=== PATIENT | female | born 1965 | race Caucasian/White ===

== ENCOUNTER 2019-10-26 17:07 | Emergency (ER) | payer OTHER, SELFPAY ==
[2019-10-26 17:07] VITALS: BP 136/86; PULSE 83; RESP 18; TEMP 36.8; O2SAT 98; BMI 34.1
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
[2019-10-26] MEDS: Morphine 4 MG/ML Syringe IV (18:31)
[2019-10-26] MEDS: Ondansetron 4 MG/2 ML Vial IV (18:31)
[2019-10-26 19:59] VITALS: TEMP 37.2
[2019-10-26] MEDS: HYDROcodone Bitartrate/Apap 5/325 Tablet PO (20:06)
[2019-10-26 20:08] VITALS: BP 138/82; PULSE 69; RESP 15; O2SAT 98
== END 2019-10-26 20:08 | disposition home or self-care (01) ==
PROVIDERS: Emergency Provider Emergency Medicine; Family Provider Family Medicine; PCP Family Medicine
DX: Z04.1 Encounter for examination and observation following transport accident (principal); M25.512 Pain in left shoulder; M79.602 Pain in left arm; M54.2 Cervicalgia; M54.5 Low back pain; V47.0XXA Car driver injured in collision with fixed or stationary object in nontraffic accident, initial encounter; Y93.I9 Activity, other involving external motion; Y92.410 Unspecified street and highway as the place of occurrence of the external cause; Y99.8 Other external cause status
CPT/HCPCS: 70450; 71250; 72125; 73060; 74176; 96374; 96375; 99285; A4216; J2405

== ENCOUNTER → 2021-03-31 15:44 | Outpatient (CLI) | payer OTHER, SELFPAY ==
--- NOTE | 2021-03-31 15:48 | CT_ITS ---
STUDY: CT LEFT SHOULDER REASON FOR EXAM: Female, 55 years old. PRIMARY OSTEOARTHRITIS, L SHOULDER RADIATION DOSAGE (If Supplied By Facility): CTDIvol = ( 36.89 ) mGy, DLP = ( 751.35 ) mGycm TECHNIQUE: The patient was scanned in a multi detector CT scanner. High resolution transaxial imaging was performed without the administration of intravenous contrast material. Sagittal and coronal images were reconstructed. Individualized dose optimization techniques were used for this CT. COMPARISON: None. FINDINGS: The glenohumeral joint space is mildly narrow. Mild peripheral cortical osteophyte formation is also present at the medial and lateral aspects of the humeral head. Mild to moderate subchondral cystic changes are seen in the glenoid. No visualized acute fracture. Normal glenoid rim, neck and visualized scapula. Normal humeral head, neck and tuberosities. Normal coracoid process. Normal visualized lateral clavicle. Normal acromioclavicular articulation. There is a Type II morphology (curved), with a neutral orientation. Normal visualized muscles and soft tissue structures. CT/Extremity Upper without Contra IMPRESSION: 1. Mild to moderate osteoarthritis of the glenohumeral articulation. Electronically Signed: Shant Collins MD at 23:53 EDT , Service support ,
== END ==
PROVIDERS: PCP Family Medicine; Referring Provider Specialist; Visit Provider Specialist
DX: M19.012 Primary osteoarthritis, left shoulder (principal)
CPT/HCPCS: 73200

== ENCOUNTER 2022-11-05 17:35 | Inpatient (IN) | payer OTHER, SELFPAY ==
[2022-11-05 17:21] VITALS: BP 86/57; PULSE 75; RESP 18; TEMP 36.7; O2SAT 96; O2SAT 97
[2022-11-05 18:05] LABS: Bedside Glucose 96 mg/dL (74-106)
--- NOTE | 2022-11-05 19:19 | NURSING ---
Addendum entered by Julissa Boyd 11/05/22 19:32: Jose to call back when bed available. Original Note: report called to jose in ER
--- NOTE | 2022-11-05 19:25 | NURSING ---
Patient very confused, when asked to state her name told RN her mom's name. at bedside helping answer questions. Per him the MD at [facility] said patient was much better this morning, more oriented, but states she doesn't seem any better to him. Vitals stable other than low BP. Updated Dr Lamar who gave order to send patient to the ER. Updated and patient. Report called to ER by Julissa ALY.
--- NOTE | 2022-11-06 11:48 | PN_ITS ---
Progress Note This patient was transferred to TCU after 6 PM at night from an OSH in an unstable condition. She was hypotensive and had altered mental status. We had no updated notes from the previous hospital since 10/29/22 and she was sent immediately to the ER to be evaluated. Transport was arranged by the ED back to the hospital she originated from due to unstable condition at transfer with no supporting documentation on her condition at the time of transfer from previous hospital for the preceding 6 days. She was never seen by myself and was immedi ately sent to the ED upon arrival to [facility].
--- NOTE | 2022-11-11 11:47 | MDS.RN ---
Information for the mds was obtained from review of the clinical record.
== END 2022-11-05 19:45 | disposition short-term general hospital (02) | DRG 316 ==
PROVIDERS: Admitting Provider Family Medicine Geriatric Medicine; PCP Family Medicine; Visit Provider Internal Medicine
DX: I95.9 Hypotension, unspecified (principal); R41.82 Altered mental status, unspecified
CPT/HCPCS: 82962; 87811

== ENCOUNTER 2022-11-05 20:14 | Emergency (ER) | payer OTHER, SELFPAY ==
[2022-11-05 20:15] VITALS: BP 84/64; PULSE 87; RESP 24; TEMP 37; O2SAT 93; BMI 25.9
--- NOTE | 2022-11-05 20:42 | CT_ITS ---
EXAM: CT HEAD WITHOUT INTRAVENOUS CONTRAST CLINICAL INDICATION: confusion TECHNIQUE: Multiple axial images were obtained of the head without intravenous contrast. This CT exam was performed using one or more of the following dose reduction techniques: automated exposure control, adjustment of the mA and/or kV according to patient size, and/or use of iterative reconstruction technique. This report was created using [employer] report generation technology. COMPARISON: 10/26/2019 FINDINGS: BRAIN AND EXTRA-AXIAL SPACES: Unremarkable. No intra- or extra-axial hemorrhage. No evidence of acute infarct. No intracranial mass or mass effect. There is preservation of the olivares/white matter interface. Posterior fossa structures are unremarkable. Ventricles are appropriate for age. No hydrocephalus. Basal cisterns are patent. BONES/JOINTS: Unremarkable. No discrete lytic or blastic abnormalities. SINUSES: Unremarkable as visualized. Clear. MASTOID AIR CELLS: Unremarkable. Clear. ORBITS: Visualized globes, extraocular muscles, optic nerves and retrobulbar fat appear unremarkable. CT/Brain/Head without Contrast IMPRESSION: Negative head/brain CT without intravenous contrast. There has been no change from reference exam. Electronically Signed: Zack Ibanez MD at 21:31 EST ,
[2022-11-05 20:55] LABS: Absolute Lymphocyte Count 2.54 X10^3/uL (0.83-4.51); Absolute Neutrophil Count 25.8 X10^3/uL (2.0-7.7); Basophil# 0.11 X10^3/uL; Basophil% 0.4 % (0-1); Eosinophil# 0.08 X10^3/uL; Eosinophils% 0.3 % (0-5); Hematocrit 36.9 % (37-47); Lymphocyte # 2.54 X10^3/ul (0.83-4.51); Lymphocyte % 8.1 % (19-41); Mean Corp Hgb Conc 32.5 g/dL (32-36); Mean Corpuscular Hgb 31.9 pg (27.0-32.0); Mean Corpuscular Volume 98.1 fL (81-99); Mean Platelet Vol. 12.7 fl (6.2-12.0); Monocyte# 2.36 X10^3/uL; Monocyte% 7.5 % (0-10); NRBC Flagged by Analyzer 0 % (0-5); Neutrophil # 25.78 X10^3/uL (2.7-7.7); Neutrophil % 82.2 % (47-70); POSITIVE COUNT YES; POSITIVE DIFFERENTIAL YES; Platelet Count 397 K/mm3 (150-450); RBC Distribution Width CV 15.9 % (11.6-14.6); RBC Distribution Width SD 57.6 fl (35.1-43.9); Red Blood Count 3.76 M/mm3 (4.2-5.4)
[2022-11-05 20:59] LABS: Differential Indicated SCAN CRITERIA MET; White Blood Count 31.4 K/mm3 (4.4-11.0)
[2022-11-05] MEDS: 0.9% Normal Saline 1,000 ML 1000 ML IV (21:04)
--- NOTE | 2022-11-05 21:05 | ED.RN ---
Unable to scan medications due to computer malfunction. All medications verified with Ce [facility].
[2022-11-05 21:07] LABS: ALB/GLOB Ratio 0.5 RATIO (0.9-2.4); AST(SGOT) 89 U/L (15-37); Alanine Aminotransfer ALT/SGPT 32 U/L (13-56); Albumin, Serum 2.1 g/dL (3.2-5.0); Alkaline Phosphatase 263 U/L (45-117); Anion Gap 6 (5-15); BUN 23 mg/dL (7-18); BUN/Creat Ratio 12.8 RATIO (10-20); Calcium,Total 8.5 mg/dL (8.5-10.1); Chloride 106 mmol/L (98-107); Creatinine, Serum 1.79 mg/dL (0.55-1.02); EST Glomerular Filtration Rate 31 mL/min (>60); Est Glom Filt Rate - Afr Amer 38 mL/min (>60); Estimated Creatinine Clearance 32.33 ml/min; Globulin 4.6 g/dL (2.2-4.2); Glucose 85 mg/dL (74-106); Protein, Total 6.7 g/dL (6.4-8.2); Sodium Level 134 mmol/L (136-145)
[2022-11-05 21:08] LABS: Lactic Acid 1.5 mmol/L (0.4-1.9)
--- NOTE | 2022-11-05 21:10 | RAD_ITS ---
EXAM: XR CHEST, 1 VIEW CLINICAL INDICATION: cough TECHNIQUE: Frontal view of the chest. This report was created using [employer] report generation technology. COMPARISON: None. FINDINGS: LUNGS AND PLEURAL SPACES: Unremarkable. No consolidation or edema. No pneumothorax. No effusion. HEART: Unremarkable. Cardiac silhouette not enlarged. MEDIASTINUM: Central airways and mediastinal contour are unremarkable. BONES/JOINTS: There is a left shoulder prosthesis. SOFT TISSUES: Unremarkable. RAD/Chest 1 View (Portable) IMPRESSION: No acute findings in the chest. Electronically Signed: Zack Ibanez MD at 21:33 EST ,
[2022-11-05 21:26] LABS: Differential Comment SCANNED
[2022-11-05 21:50] LABS: Bacteria 0 SEEN /hpf (None Seen); Mucous, Urine 0 SEEN /hpf (<or=2+)
[2022-11-05 21:52] VITALS: BP 88/67; PULSE 79; RESP 30; TEMP 36; O2SAT 97
--- NOTE | 2022-11-05 22:04 | CT_ITS ---
EXAM: CT ABDOMEN AND PELVIS WITHOUT INTRAVENOUS CONTRAST CLINICAL INDICATION: pain TECHNIQUE: Helically acquired images were obtained of the abdomen and pelvis without intravenous contrast. This CT exam was performed using one or more of the following dose reduction techniques: automated exposure control, adjustment of the mA and/or kV according to patient size, and/or use of iterative reconstruction technique. This report was created using [employer] report generation technology. COMPARISON: 10/26/2019 FINDINGS: LOWER THORAX: Unremarkable. Lung bases are clear. No cardiomegaly. No significant pericardial effusion. ABDOMEN: LIVER: The liver is diffusely decreased in attenuation compatible with fatty infiltration. GALLBLADDER AND BILE DUCTS: There are surgical clips from a cholecystectomy. No intra- or extrahepatic biliary ductal dilation. PANCREAS: Unremarkable. No focal cystic mass. SPLEEN: Unremarkable. Normal size without focal cystic or solid mass. ADRENALS: Unremarkable. No nodules. KIDNEYS AND URETERS: Unremarkable. Normal renal size and position. No hydronephrosis. STOMACH AND BOWEL: Unremarkable. No stomach or bowel distention. No focal inflammatory change. PELVIS: APPENDIX: No evidence of acute appendicitis. BLADDER: Unremarkable. REPRODUCTIVE: Patient status post hysterectomy. ABDOMEN and PELVIS: INTRAPERITONEAL SPACE: Unremarkable. No ascites or other fluid collection. No free air. BONES/JOINTS: Unremarkable. No suspicious lytic or blastic abnormality. SOFT TISSUES: Unremarkable. No discrete abdominal or pelvic wall hernia. VASCULATURE: Unremarkable. Abdominal aorta is non-dilated. LYMPH NODES: Unremarkable. No enlarged lymph nodes. CT/Abdomen/Pelvis without Cont IMPRESSION: No acute findings in the abdomen or pelvis. Electronically Signed: Zack Ibanez MD at 22:55 EST ,
--- NOTE | 2022-11-05 22:10 | ED.RN ---
Antibiotics verified with Hillary ALY due to computer malfunction.
[2022-11-05 22:14] VITALS: BP 97/67; PULSE 80; RESP 32; O2SAT 94
[2022-11-05 22:35] LABS: Color, Urine Yellow (Yellow); Glucose, Dipstick Normal (Normal); Ketone-Dipstick 15 mg/dl (Negative); Leukocyte Esterase-Dipstick 100 /ul (Negative); Nitrite-Dipstick Negative (Negative); Occult Blood-Urine 10 /ul (Negative); Protein-Dipstick 30 mg/dl (Negative); Specific Gravity, Urine 1.015 (1.002-1.030); Urine Clarity Sl. Cloudy (Clear); Urine Urobilinogen 1 mg/dl (Normal)
[2022-11-05 22:37] LABS: Urine Bilirubin Dipstick 3 mg/dL (Negative)
[2022-11-05 22:43] LABS: Amorphous Sediment 1+ URATE; Red Blood Cells-Urine 0-5 SEEN /hpf (0-5); Squamous Epithelial Cells - UA 0-5 SEEN /hpf (5-10); White Blood Cells 5-10 SEEN /hpf (0-5)
--- NOTE | 2022-11-05 23:53 | ED.RN ---
Addendum entered by Marsha Anguiano 11/06/22 00:01: New attempt for IV start before starting another bag of fluids so pt can obtain vancomycin. Original Note: This RN attempted IV start x2 for second IV. Jazmin ALY attempted x2 as well. Dr. Vieira notified fo difficult IV start.
--- NOTE | 2022-11-05 23:56 | EDS_ITS ---
HPI History of Present Illness Chief Complaint: Hypotension Informant: patient and SNF Narrative Narrative: Some history is obtained through patient. I also read some of the chart from her hospital she was discharged from this morning. Although the charting on t hat stopped on about the . We also discussed with TCU staff. I later discussed the case with the primary physician that had taken care of her in the hospital. This patient was evidently in the hospital for about 9 or 10 days. She had colitis and confusion. She was treated with antibiotics. Her ammonia had been elevated but it also come down before discharge. She also has a history of but drinking 10 shots a day and its thought that she likely had some component of a Korsakoff's encephalopathy because her confusion never really cleared. She also did have a high white count at discharge today. It had been a little over 20,000. Infectious disease with had just seen her. All her cultures were negative. We found out that she had a repeat CAT scan. They felt her white count may have been a leukemoid reaction and there is no indication of acute infectious process. However, the patient got down to TCU today. Her blood pressure was a bit low and she was confused. For this reason they sent her down for evaluation. Patient really cannot tell me any reason she was in [facility]. I was shocked when she was able to tell me the year the month and that Yon Elizabeth was the president. But minutes before she could not answer any of these questions with the nursing staff. She tells me she was in [facility] for about 40 minutes when in fact she was there for about 10 days. I cannot get any data on her past history. There is no useful review of systems from her. She does state that she does not feel well. She admits to coughing but denies being short of breath. She also admits to pain in the lower abdomen but states that that has been there 3 years. However, she cannot tell me that it was just evaluated in the hospital. [facility] Medical History Esophageal dilatation Esophageal dysphagia Sepsis Home Medications lactulose 10 gram/15 mL oral syrup 30 g PO TID liver 11/05/22 [History Last Taken Unknown] metformin 500 mg tablet 1,000 mg PO DAILY@1700 diabetes 11/05/22 [History Last Taken Unknown] paroxetine HCl 40 mg tablet 40 mg PO DAILY Mood 11/05/22 [History Last Taken Unknown] propranolol 120 mg capsule,24 hr,extended release 120 mg PO DAILY BP 11/05/22 [History Last Taken Unknown] rifaximin 550 mg tablet 550 mg PO TID Check with primary doctor 11/05/22 [History Last Taken Unknown] sodium bicarbonate 650 mg tablet 1,300 mg PO TID salt 11/05/22 [History Last T aken Unknown] thiamine HCl (vitamin B1) 100 mg tablet 100 mg PO DAILY supplement 11/05/22 [History Last Taken Unknown] Allergy/AdvReac Type Severity Reaction Status Date / Time Penicillins Allergy Hives Verified 10/26/19 17:10 Surgical History History of hysterectomy History of knee surgery Hx of cholecystectomy Joint replaced Social History Smoking Status: Current some day smoker tobacco type: cigarettes ROS ROS ED ROS Narrative I cannot get any useful review of systems that is consistent from this patient. Her waxing and waning confusion and inability to state her recent illnesses and times makes review of systems of very little value. Respiratory/Chest Respiratory/Chest: Reports cough Gastrointestinal Gastrointestinal: Reports abdominal pain EXAM Physical Exam Const Vital Signs: 11/05/22 20:15 11/05/22 21:52 11/05/22 22:14 Temperature 98.6 F 96.8 F L Temperature Source Temporal Axillary Pulse Rate 87 79 80 Respiratory Rate 24 H 30 H 32 H Blood Pressure 84/64 L 88/67 L 97/67 Blood Pressure Mean 70 74 77 Pulse Ox 93 97 94 Oxygen Delivery Method Room Air Room Air Room Air 11/06/22 00:00 Temperature Temperature Source Pulse Rate 82 Respiratory Rate 28 H Blood Pressure 94/52 L Blood Pressure Mean 66 Pulse Ox 97 Oxygen Delivery Method Room Air Positive well nourished and well developed General Appearance ED: well developed and NAD; Negative for cyanotic or diaphoretic HEENT Reports dry mucous membranes Mouth ED: Yes dry mucous membranes Mouth: dry mucous membranes Eyes General Eye ED: Negative for scleral icterus Neck no JVD Chest Wall inspection of chest normal Resp normal respiratory effort Resp Narrative: Respiratory effort seems normal. She does have an occasional harsh cough but no sputum production. I hear no wheezing. I hear no rales. No rhonchi. Cardio regular rate and regular rhythm GI normal to inspection, nondistended, normoactive bowel sounds and non-tender GI Narrative: Despite saying her abdomen hurts down the right lower quadrant, I am not getting any tenderness on exam. Her bowel sounds seem normal. Back/Spine no CVA tenderness Extremity normal to inspection Neuro Neuro Narrative: Patient's orientation waxes and waning very quickly. As in the history of present illness I was rather shocked when she could tell me that it was October 2022 and oYn Elizabeth was the president. She told me that those people sent her to the emergency department so she knew she was here. But then she could not tell me any of her past history or details at all about her recent admission. I do not get any focal or lateralizing deficit Psych Psych Narrative: See above. Skin no rashes or lesions noted General Skin Exam: Negative for jaundice MDM MDM MDM Narrative Medical decision making narrative: Patient CBC shows a very high white count at 31,400. No anemia. Platelets are normal. Electrolytes show acute kidney injury with a creatinine of 1.79. LFTs show elevated bilirubin at 2.0 and mild elevation of the alk phos at 263. I do not have recent results on the paperwork that I reviewed. Her ammonia was high normal at 30. Lactate was normal despite somewhat lower blood pressure. Urine was slightly cloudy but only 5-10 white cells. With her borderline blood pressure, high white count and urine results we did treat with antibiotics presumptively. I added a CAT scan of the abdomen that showed no acute process. Chest x-ray and CT of her head also showed no acute process. Patient blood pressure has been running about 95/65 with a mean of about 75 while here her whole time here. She is only gotten 500 cc of fluid because of the antibiotics running in. I discussed case with our hospitalist but he felt since all this patient's history as in another hospital when she was just discharged there this morning it would be appropriate to send her back. I agree that I think that would be best for continuity of care. I did discuss the case with Dr. Salazar who is the physician who cared for her in the hospital. She will take her back. We are awaiting a bed at this time. Lab Data Attestation: I reviewed the patient's lab results. Labs: Laboratory Results - last 24 hr 11/05/22 11/05/22 11/05/22 20:20 20:20 20:20 WBC 31.4 H* RBC 3.76 L Hgb 12.0 Hct 36.9 L MCV 98.1 MCH 31.9 MCHC 32.5 RDW Std Deviation 57.6 H RDW Coeff of April 15.9 H Plt Count 397 MPV 12.7 H Immature Gran % (Auto) 1.500 H Neut % (Auto) 82.2 H Lymph % (Auto) 8.1 L [place] % (Auto) 7.5 Eos % (Auto) 0.3 Baso % (Auto) 0.4 Absolute Neuts (auto) 25.8 H Absolute Lymphs (auto) 2.54 Nucleated RBC % 0 Differential Comment SCANNED Diff Path Review May foll Sodium 134 L Potassium 5.0 Chloride 106 Carbon Dioxide 22.0 Anion Gap 6 BUN 23 H Creatinine 1.79 H Estim Creat Clear Calc 32.33 Est GFR (MDRD) Af Amer 38 L Est GFR (MDRD) Non-Af 31 L BUN/Creatinine Ratio 12.8 Glucose 85 Lactic Acid Calcium 8.5 Total Bilirubin 2.00 H AST 89 H ALT 32 Alkaline Phosphatase 263 H Ammonia 30.0 Total Protein 6.7 Albumin 2.1 L Globulin 4.6 H Albumin/Globulin Ratio 0.5 L Urine Color Urine Clarity Urine pH Ur Specific [place] Urine Protein Urine Glucose (UA) Urine Ketones Urine Occult Blood Urine Nitrite Urine Bilirubin Urine Urobilinogen Ur Leukocyte Esterase Urine RBC Urine WBC Ur Squamous Epith Cells Amorphous Sediment Urine Bacteria Urine Mucus 11/05/22 11/05/22 20:20 21:40 WBC RBC Hgb Hct MCV MCH MCHC RDW Std Deviation RDW Coeff of April Plt Count MPV Immature Gran % (Auto) Neut % (Auto) Lymph % (Auto) [place] % (Auto) Eos % (Auto) Baso % (Auto) Absolute Neuts (auto) Absolute Lymphs (auto) Nucleated RBC % Differential Comment Diff Path Review Sodium Potassium Chloride Carbon Dioxide Anion Gap BUN Creatinine Estim Creat Clear Calc Est GFR (MDRD) Af Amer Est GFR (MDRD) Non-Af BUN/Creatinine Ratio Glucose Lactic Acid 1.5 Calcium Total Bilirubin AST ALT Alkaline Phosphatase Ammonia Total Protein Albumin Globulin Albumin/Globulin Ratio Urine Color Yellow Urine Clarity Sl. Cloudy Urine pH 6.0 Ur Specific [place] 1.015 Urine Protein 30 H Urine Glucose (UA) Normal Urine Ketones 15 H Urine Occult Blood 10 H Urine Nitrite Negative Urine Bilirubin 3 H Urine Urobilinogen 1 H Ur Leukocyte Esterase 100 H Urine RBC 0-5 SEEN Urine WBC 5-10 SEEN Ur Squamous Epith Cells 0-5 SEEN Amorphous Sediment 1+ URATE Urine Bacteria 0 SEEN Urine Mucus 0 SEEN Radiography Diagnostic Testing: Clinical Impression(s) from Imaging Studies Brain CT 11/05/22 20:42 IMPRESSION: Negative head/brain CT without intravenous contrast. There has been no change from reference exam. Electronically Signed: Zack Ibanez MD at 21:31 EST , Chest X-Ray 11/05/22 21:10 IMPRESSION: No acute findings in the chest. Electronically Signed: Zack Ibanez MD at 21:33 EST , Abdomen/Pelvis CT 11/05/22 22:04 IMPRESSION: No acute findings in the abdomen or pelvis. Electronically Signed: Zack Ibanez MD at 22:55 EST , See above in MDM. Discharge Plan Triage Chief Complaint: Hypotension ED Provider: Alcon Vieira Dx/Rx/DC Orders Clinical Impression: Leukocytosis, Transient hypotension, Confusion, Elevated liver function tests Prescriptions: No Action metformin 500 mg Tablet 1,000 mg PO DAILY@1700 lactulose 10 gram/15 mL Syrup 30 g PO TID thiamine HCl (vitamin B1) 100 mg Tablet 100 mg PO DAILY sodium bicarbonate 650 mg Tablet 1,300 mg PO TID propranolol 120 mg Capsule,Extended Release 24 Hr 120 mg PO DAILY paroxetine HCl 40 mg Tablet 40 mg PO DAILY rifaximin 550 mg Tablet 550 mg PO TID Primary Care Provider: Roscoe Whelan Referrals: Roscoe Whelan, [Primary Care Provider] - Disposition Disposition: Acute Care Hospital
[2022-11-06] VITALS (12 sets, daily range): BP systolic 94–117; BP diastolic 52–86; PULSE 66–85; RESP 17–28; TEMP 35.8–36.3; O2SAT 95–98
[2022-11-06] MEDS: 0.9% Normal Saline 1,000 ML 999 ML IV (01:30)
--- NOTE | 2022-11-06 09:14 | ED.RN ---
[facility] ETA [id number]
--- NOTE | 2022-11-06 09:24 | ED.RN ---
attempted to call report. no answer.
[2022-11-06 14:11] LABS: Pathologist Review Reviewed
== END 2022-11-06 11:20 | disposition short-term general hospital (02) ==
PROVIDERS: Emergency Provider Emergency Medicine; PCP Family Medicine; Visit Provider Emergency Medicine
DX: R41.0 Disorientation, unspecified (principal); N17.9 Acute kidney failure, unspecified; I95.9 Hypotension, unspecified; D72.829 Elevated white blood cell count, unspecified; K52.9 Noninfective gastroenteritis and colitis, unspecified; F17.210 Nicotine dependence, cigarettes, uncomplicated; R79.89 Other specified abnormal findings of blood chemistry
CPT/HCPCS: 70450; 71045; 74176; 80053; 81001; 82140; 83605; 85025; 87040; 87086; 87428; 93005; 96361; 96365; 96366; 96367; 99285; J7030; J7040; A4216

== ENCOUNTER 2022-11-11 17:10 | Inpatient (IN) | payer OTHER, SELFPAY ==
[2022-11-11 17:27] VITALS: BP 98/69; PULSE 94; RESP 17; TEMP 35.6; O2SAT 98; BMI 26.8
[2022-11-11] MEDS: Lactulose 20 GM/30 ML UDC 30 GM PO (18:57)
[2022-11-11] MEDS: Pantoprazole Sodium 40 MG Tablet PO (18:57)
[2022-11-11] MEDS: rifAXIMin 550 MG Tablet PO (18:58)
--- NOTE | 2022-11-11 20:07 | HP.PCM_ITS ---
HPI - General General Date of Admission: 11/11/22 Date of Service: 11/11/22 Chief Complaint: Here for rehabilitation. HPI Narrative REJI REBOLLAR, is a 56 Female who presents with followin10/22/2022 Admit to [facility]. Abdominal pain, constipation, nausea. Constipation x 3 months, BM very hard doris. Decreased appetite, but able to eat, drink. Rocephin, Flagyl, consult GI, clears, right upper quadrant ultrasound for colitis. CT abdomen/pelvis showed mild colitis, ascending colon, duodenal diverticulum, hepatomegaly, fatty liver, moderate sliding hiatal hernia. 10/27/2022 CT brain negative. 10/28/2022 Confused, Ammonia level elevated. MRI brain negative IV fluids, IV thiamine for Wernicke's encephalopathy. 11/05/2022 Admitted to TCU hypotensive, confused. 11/05/2022 Transferred back to [facility] for admission. 11/09/2022 GI consulted for anemia, no EGD recommended, trend Hemoglobin, trend liver function tests. Encephalopathy etiology unknown. 11/09/2022 Too weak to walk. PPI for GERD. 11/11/2022 Admit to TCU with debility, here for rehabilitation, strengthening, prior to discharge home with . [facility] Medical History Esophageal dilatation Esophageal dysphagia Sepsis Home Medications lactulose 10 gram/15 mL oral syrup 30 g PO TID liver 11/05/22 [History Last Taken Unknown] metformin 500 mg tablet 1,000 mg PO DAILY@1700 diabetes 11/05/22 [History Last Taken Unknown] paroxetine HCl 40 mg tablet 40 mg PO DAILY Mood 11/05/22 [History Last Taken Unknown] propranolol 120 mg capsule,24 hr,extended release 120 mg PO DAILY BP 11/05/22 [History Last Taken Unknown] rifaximin 550 mg tablet 550 mg PO TID Check with primary doctor 11/05/22 [History Last Taken Unknown] sodium bicarbonate 650 mg tablet 1,300 mg PO TID salt 11/05/22 [History Last Taken Unknown] thiamine HCl (vitamin B1) 100 mg tablet 100 mg PO DAILY supplement 11/05/22 [History Last Taken Unknown] fluconazole 200 mg tablet 200 mg PO DAILY UTI 11/11/22 [History Last Taken Unknown] folic acid 1 mg tablet 1 mg PO DAILY Supplement 11/11/22 [History Last Taken Un known] pantoprazole 40 mg tablet,delayed release 40 mg PO BID GERD 11/11/22 [History Last Taken Unknown] Allergy/AdvReac Type Severity Reaction Status Date / Time Penicillins Allergy Hives Verified 10/26/19 17:10 Surgical History History of hysterectomy History of knee surgery Hx of cholecystectomy Joint replaced Social History (Updated 11/11/22 @ 20:[address] Jose Lopez MD) household members: spouse Smoking Status: Never smoker alcohol intake: current substance use type: does not use ROS Constitutional Constitutional: Denies chills, fever(s) or weight gain ENT HEENT: Denies headache(s), nasal congestion or nasal discharge Cardiovascular Cardiovascular: Denies chest pain or palpitations Respiratory/Chest Respiratory/Chest: Denies cough, excessive phlegm production or shortness of breath with exertion Gastrointestinal Gastrointestinal: Denies abdominal pain, nausea or vomiting Genitourinary Genitourinary: Denies dysuria Musculoskeletal Musculoskeletal: Denies joint pain or joint swelling Integumentary Integumentary: Denies rash or wounds Neurologic Neurologic: Denies focal weakness, numbness or tingling Psychiatric Psychiatric: Denies anxiety, auditory hallucinations, depression, homicidal ideation or suicidal ideation Vital Signs Vital Signs Vital Signs: 11/11/22 17:27 11/11/22 17:27 Temperature 96.0 F L Temperature Source Temporal Pulse Rate 94 Pulse Rhythm Regular Pulse Strength Normal (2+) Respiratory Rate 17 Respiratory Effort Normal Non-Labored Respiratory Depth Normal Respiratory Pattern Normal Blood Pressure 98/69 Blood Pressure Mean 78 Blood Pressure Source Monitor Blood Pressure Position Sitting Blood Pressure Location Right Forearm Pulse Ox 98 Oxygen Delivery Method Room Air Room Air Weight Weight: 75.296 kg Body Mass Index (BMI) 26.8 Physical Exam Const alert General Appearance: cooperative HEENT normocephalic Eyes PERRL and EOMs intact bilaterally Neck supple, no JVD and no carotid bruits Resp normal respiratory effort, normal air movement and clear to auscultation bilaterally Cardio regular rate and regular rhythm GI normal to inspection, nondistended, normoactive bowel sounds, non-tender and non-distended Extremity normal capillary refill General Extremity: Negative for edema Skin no rashes or lesions noted General Skin Exam: no breakdown Psych affect normal Appearance: appropriate Assessment & Plan Assessment/Plan (1) Debility: (2) Colitis: (3) EMERY (nonalcoholic steatohepatitis): (4) Hepatic encephalopathy: (5) Wernicke encephalopathy: (6) Anxiety: (7) GERD (gastroesophageal reflux disease): PLAN: Plan 56 year old female with below past medical history hospitalized for colitis, re solved, then encephalopathy, anemia, admitted to TCU with debility, here for rehabilitation, strengthening, prior to discharge home with . * Debility - PT/OT. * Dysphagia - ST. * Pain - Tylenol 1000mg q6h prn pain (1-10). * Bowel - Hold, on Lactulose. * Adult immunization - Administer pneumonia vaccine, covid19 vaccine, flu vaccine as appropriate. * DVT prophylaxis - Hold anemia. * Nutrition - Ensure Plus 120ml po tidcm. * Fungal infection - Fluconazole 200mg daily thru 11/21/2022. * Hepatic encephalopathy - Lactulose 30gm bid, Xifaxan 550mg bid. * Skin irritation - Calmoseptine topical bid. * GERD - Pantoprazole 40mg bid. * Depression - Paxil 40mg daily, stable chronic long term care pharmacist use, GDR not recommended. * Metabolic acidosis - Sodium Bicarb 1300mg tid.
[2022-11-11] MEDS: Sodium Bicarbonate 650 MG Tablet 1300 MG PO (20:47)
[2022-11-11] MEDS: Acetaminophen 500 MG Tablet 1000 MG PO (20:47)
[2022-11-11] MEDS: Menthol/Lanolin/Calamine/Znox 113 GM Tube 1 APPLIC TOPICAL (20:47)
[2022-11-12] MEDS: Pantoprazole Sodium 40 MG Tablet PO ×2 (04:59→17:29)
[2022-11-12] MEDS: rifAXIMin 550 MG Tablet PO ×2 (05:00→17:29)
[2022-11-12] MEDS: Fluconazole 100 MG Tablet 200 MG PO (05:00)
[2022-11-12] MEDS: Sodium Bicarbonate 650 MG Tablet 1300 MG PO ×3 (05:02→19:36)
[2022-11-12] MEDS: Paroxetine 20 MG Tablet 40 MG PO (05:02)
[2022-11-12] MEDS: Lactulose 20 GM/30 ML UDC 30 GM PO ×2 (05:03→17:26)
[2022-11-12 06:00] LABS: Absolute Lymphocyte Count 2.12 X10^3/uL (0.83-4.51); Absolute Neutrophil Count 3.7 X10^3/uL (2.0-7.7); Basophil# 0.03 X10^3/uL; Basophil% 0.5 % (0-1); Eosinophil# 0.23 X10^3/uL; Eosinophils% 3.5 % (0-5); Hematocrit 29.4 % (37-47); Hemoglobin 9.5 g/dL (12.0-15.0); Lymphocyte # 2.12 X10^3/ul (0.83-4.51); Lymphocyte % 32.7 % (19-41); Mean Corp Hgb Conc 32.3 g/dL (32-36); Mean Corpuscular Hgb 32.9 pg (27.0-32.0); Mean Corpuscular Volume 101.7 fL (81-99); Mean Platelet Vol. 12.1 fl (6.2-12.0); Monocyte# 0.33 X10^3/uL; Monocyte% 5.1 % (0-10); NRBC Flagged by Analyzer 0 % (0-5); Neutrophil # 3.71 X10^3/uL (2.7-7.7); Neutrophil % 57.1 % (47-70); Platelet Count 257 K/mm3 (150-450); RBC Distribution Width CV 15.1 % (11.6-14.6); Red Blood Count 2.89 M/mm3 (4.2-5.4); White Blood Count 6.5 K/mm3 (4.4-11.0)
[2022-11-12 06:37] LABS: Anion Gap 5 (5-15); BUN 3 mg/dL (7-18); BUN/Creat Ratio 3.7 RATIO (10-20); Calcium,Total 7.6 mg/dL (8.5-10.1); Chloride 119 mmol/L (98-107); Creatinine, Serum 0.82 mg/dL (0.55-1.02); EST Glomerular Filtration Rate 77 mL/min (>60); Est Glom Filt Rate - Afr Amer 93 mL/min (>60); Estimated Creatinine Clearance 73.42 ml/min; Glucose 78 mg/dL (74-106); Potassium 3.1 mmol/L (3.5-5.1); Sodium Level 146 mmol/L (136-145)
[2022-11-12] MEDS: Ensure Plus High Protein 120 ML LIQUID PO ×3 (07:49→17:34)
[2022-11-12] MEDS: Acetaminophen 500 MG Tablet 1000 MG PO ×3 (07:57→20:06)
--- NOTE | 2022-11-12 08:06 | RAD_ITS ---
STUDY: X-RAY - PELVIS AND RIGHT HIP REASON FOR EXAM: Female, 56 years old. Right hip pain. TECHNIQUE: 3 views of the pelvis and hip. COMPARISON: None. FINDINGS: There is a non-specific bowel gas pattern. Normal visualized soft tissue structures. Normal bilateral iliac wings, sacroiliac joints and visualized sacrum. Normal bilateral superior and inferior pubic rami. Normal pubic symphysis. Normal bilateral ischial tuberosities. Mild arthrosis of both hips. RAD/HIP, UNI W/ Pelvis 2-3 Views IMPRESSION: Mild arthrosis of both hips. No other abnormality. Electronically Signed: Clint Gaines, at 14:43 EST ,
[2022-11-12] MEDS: traMADol 50 MG Tablet PO ×2 (09:04→20:06)
[2022-11-12] MEDS: Potassium Chloride Oral Tablet 20 MEQ 40 MEQ PO (09:05)
[2022-11-12] MEDS: Potassium Chloride Oral Tablet 20 MEQ PO (09:05)
[2022-11-12] MEDS: Menthol/Lanolin/Calamine/Znox 113 GM Tube 1 APPLIC TOPICAL ×2 (11:02→19:37)
[2022-11-12] MEDS: Tuberculin,Purif.prot.deriv. 50 TU/ML Vial 0.1 ML ID (11:04)
[2022-11-12 14:43] VITALS: BP 97/65; PULSE 76; RESP 16; TEMP 36.4; O2SAT 98
--- NOTE | 2022-11-12 16:25 | NURSING ---
xray done of pelvis and rt hip d/t pain, showed mild arthrosis both hips. dr miller reviewed, no new orders.
[2022-11-13 05:00] VITALS: BP 114/76; PULSE 112
[2022-11-13] MEDS: Acetaminophen 500 MG Tablet 1000 MG PO ×3 (05:06→18:23)
[2022-11-13] MEDS: traMADol 50 MG Tablet PO ×3 (05:06→18:23)
[2022-11-13] MEDS: Fluconazole 100 MG Tablet 200 MG PO (05:07)
[2022-11-13] MEDS: Paroxetine 20 MG Tablet 40 MG PO (05:07)
[2022-11-13] MEDS: Pantoprazole Sodium 40 MG Tablet PO ×2 (05:07→17:01)
[2022-11-13] MEDS: rifAXIMin 550 MG Tablet PO ×2 (05:07→17:02)
[2022-11-13] MEDS: Sodium Bicarbonate 650 MG Tablet 1300 MG PO ×3 (05:08→21:01)
[2022-11-13] MEDS: Ensure Plus High Protein 120 ML LIQUID PO ×3 (08:24→16:59)
[2022-11-13] MEDS: Lactulose 20 GM/30 ML UDC 30 GM PO ×2 (08:26→17:00)
[2022-11-13] MEDS: Potassium Chloride Oral Tablet 20 MEQ PO (08:30)
[2022-11-13 10:00] VITALS: RESP 16; O2SAT 98
--- NOTE | 2022-11-13 13:53 | CASEMGMT ---
Social Work Met with patient to complete initial assessment. Introduced self and role. Verified/updated contacts. Discussed code status and MOLST form. Pt confirms full code. MOLST placed in Dr folder. Educated to MMO CM insurance with [employer] 11/13 and continued stay is not guaranteed with each review. Pt's goal is to return home at [facility]. SW to continue to follow for DC planning. Nathalie Romero ,MUSEUM SECURITY CHIEF VALUER
[2022-11-13] MEDS: Menthol/Lanolin/Calamine/Znox 113 GM Tube 1 APPLIC TOPICAL ×2 (14:08→21:01)
--- NOTE | 2022-11-13 14:31 | CHAPLAIN ---
Type of Pastoral Visit _x__ Initial Visit ___ Follow-up Visit ___ On-call Visit ___ General Patient Visit ___ Spiritual Assessment ___ Family Conference ___ Bereavement ___ Rapid Response ___ Code Blue ___ Other (describe below) Pastoral Care Referral From _x__ Patient ___ Family ___ Nurse ___ Physician ___ Coater ___ Foreign Language Teacher ___ Other (describe below) Sacrament/Intervention _x__ Active listening ___ Anointing ___ Church ___ Bereavement ___ Communion ___ Marilyn exploration ___ ___ Life review _x__ Prayer ___ Reconciliation ___ Sacrament of Sick _x__ Supportive presence ___ Wedding ___ Other (describe below) Pastoral Comments patient is known to this key account executive; pt gives update on her health situation and a review of current family life; pt is slower to process information and answers than is normal for her; pt is pleasant but has low affect; pt welcomes presence and prayer for support; pt does have a connection to a religion
[2022-11-13 15:19] VITALS: BP 116/78; PULSE 112; RESP 16; TEMP 35.8; O2SAT 99
--- NOTE | 2022-11-13 15:28 | NURSING ---
HR noted at 114 and regular. BP 116/78. Asymptomatic. Only reports pain in right hip. Dr. Dunlap made aware. Request to monitor and encourage fluids.
[2022-11-14] MEDS: Sodium Bicarbonate 650 MG Tablet 1300 MG PO ×3 (04:45→20:46)
[2022-11-14] MEDS: Paroxetine 20 MG Tablet 40 MG PO (04:45)
[2022-11-14] MEDS: rifAXIMin 550 MG Tablet PO ×2 (04:45→16:56)
[2022-11-14] MEDS: Lactulose 20 GM/30 ML UDC 30 GM PO ×2 (04:45→16:55)
[2022-11-14] MEDS: Pantoprazole Sodium 40 MG Tablet PO ×2 (04:45→16:56)
[2022-11-14] MEDS: Fluconazole 100 MG Tablet 200 MG PO (04:48)
[2022-11-14] MEDS: Acetaminophen 500 MG Tablet 1000 MG PO ×3 (04:51→18:06)
[2022-11-14] MEDS: traMADol 50 MG Tablet PO ×3 (04:52→18:06)
--- NOTE | 2022-11-14 07:21 | NURSING ---
Dr. Lopez notified of elevated Na+ at 146, drawn on 11/12. Pt having repeat BMP drawn this AM. No new orders. RN aware.
[2022-11-14] MEDS: Ensure Plus High Protein 120 ML LIQUID PO ×3 (08:00→16:54)
[2022-11-14] MEDS: Potassium Chloride Oral Tablet 20 MEQ PO ×2 (08:01→16:54)
[2022-11-14 08:02] LABS: Hematocrit 28.4 % (37-47); Hemoglobin 8.9 g/dL (12.0-15.0)
[2022-11-14] MEDS: Menthol/Lanolin/Calamine/Znox 113 GM Tube 1 APPLIC TOPICAL ×2 (08:03→20:46)
[2022-11-14 08:20] LABS: Anion Gap 6 (5-15); BUN 4 mg/dL (7-18); BUN/Creat Ratio 3.8 RATIO (10-20); Chloride 117 mmol/L (98-107); Creatinine, Serum 1.04 mg/dL (0.55-1.02); EST Glomerular Filtration Rate 59 mL/min (>60); Est Glom Filt Rate - Afr Amer 71 mL/min (>60); Estimated Creatinine Clearance 57.89 ml/min; Glucose 86 mg/dL (74-106); Potassium 3.4 mmol/L (3.5-5.1); Sodium Level 145 mmol/L (136-145)
[2022-11-14 14:29] VITALS: BP 123/84; PULSE 105; RESP 16; TEMP 36.2
[2022-11-15] MEDS: traMADol 50 MG Tablet PO ×3 (04:31→18:29)
[2022-11-15] MEDS: Sodium Bicarbonate 650 MG Tablet 1300 MG PO ×3 (04:31→19:50)
[2022-11-15] MEDS: Pantoprazole Sodium 40 MG Tablet PO ×2 (04:32→18:25)
[2022-11-15] MEDS: Paroxetine 20 MG Tablet 40 MG PO (04:32)
[2022-11-15] MEDS: Lactulose 20 GM/30 ML UDC 30 GM PO ×2 (04:33→18:25)
[2022-11-15] MEDS: Fluconazole 100 MG Tablet 200 MG PO (04:34)
[2022-11-15] MEDS: rifAXIMin 550 MG Tablet PO ×2 (04:35→18:25)
[2022-11-15] MEDS: Ensure Plus High Protein 120 ML LIQUID PO ×3 (08:45→18:24)
[2022-11-15] MEDS: Potassium Chloride Oral Tablet 20 MEQ PO ×2 (08:46→18:24)
[2022-11-15] MEDS: Menthol/Lanolin/Calamine/Znox 113 GM Tube 1 APPLIC TOPICAL ×2 (08:47→19:53)
[2022-11-15 10:00] VITALS: PULSE 110; RESP 16; O2SAT 97
[2022-11-15 15:23] VITALS: BP 124/80; PULSE 108; RESP 20; TEMP 36.6; O2SAT 97
[2022-11-16] MEDS: Lactulose 20 GM/30 ML UDC 30 GM PO ×2 (05:05→17:22)
[2022-11-16] MEDS: rifAXIMin 550 MG Tablet PO ×2 (05:06→17:24)
[2022-11-16] MEDS: Fluconazole 100 MG Tablet 200 MG PO (05:06)
[2022-11-16] MEDS: Paroxetine 20 MG Tablet 40 MG PO (05:06)
[2022-11-16] MEDS: Pantoprazole Sodium 40 MG Tablet PO ×2 (05:06→17:24)
[2022-11-16] MEDS: Sodium Bicarbonate 650 MG Tablet 1300 MG PO ×3 (05:06→20:04)
[2022-11-16] MEDS: traMADol 50 MG Tablet PO ×3 (05:08→17:46)
[2022-11-16] MEDS: Ensure Plus High Protein 120 ML LIQUID PO ×2 (08:08→12:33)
[2022-11-16] MEDS: Potassium Chloride Oral Tablet 20 MEQ PO ×2 (08:08→17:24)
[2022-11-16] MEDS: Menthol/Lanolin/Calamine/Znox 113 GM Tube 1 APPLIC TOPICAL ×2 (08:10→20:05)
[2022-11-16 08:38] LABS: Hematocrit 31.5 % (37-47); Hemoglobin 9.5 g/dL (12.0-15.0)
[2022-11-16 08:59] LABS: Anion Gap 4 (5-15); BUN 4 mg/dL (7-18); BUN/Creat Ratio 3.7 RATIO (10-20); Calcium,Total 8.4 mg/dL (8.5-10.1); Chloride 116 mmol/L (98-107); Creatinine, Serum 1.08 mg/dL (0.55-1.02); EST Glomerular Filtration Rate 56 mL/min (>60); Est Glom Filt Rate - Afr Amer 68 mL/min (>60); Estimated Creatinine Clearance 55.75 ml/min; Glucose 126 mg/dL (74-106); Potassium 4.1 mmol/L (3.5-5.1); Sodium Level 144 mmol/L (136-145)
--- NOTE | 2022-11-16 11:18 | NURSING ---
System Analyst Note; Activity Asset: Marcelle Flynn is independent in her choice of daily activities. She reads, works on word puzzles, watches tv, visits with her family and the salesperson surgical appliances.
[2022-11-16 13:51] VITALS: BP 119/74; PULSE 118; RESP 18; TEMP 36.4; O2SAT 96
[2022-11-16 20:00] VITALS: BP 113/85; PULSE 95; RESP 18; TEMP 36.5; O2SAT 97
[2022-11-17] MEDS: Sodium Bicarbonate 650 MG Tablet 1300 MG PO ×3 (06:59→19:43)
[2022-11-17] MEDS: Lactulose 20 GM/30 ML UDC 30 GM PO ×2 (06:59→17:42)
[2022-11-17] MEDS: Paroxetine 20 MG Tablet 40 MG PO (07:00)
[2022-11-17] MEDS: Fluconazole 100 MG Tablet 200 MG PO (07:00)
[2022-11-17] MEDS: Pantoprazole Sodium 40 MG Tablet PO ×2 (07:00→17:43)
[2022-11-17] MEDS: rifAXIMin 550 MG Tablet PO ×2 (07:01→17:43)
[2022-11-17] MEDS: traMADol 50 MG Tablet PO ×3 (07:03→19:43)
[2022-11-17] MEDS: Acetaminophen 500 MG Tablet 1000 MG PO ×2 (07:04→19:43)
[2022-11-17] MEDS: Potassium Chloride Oral Tablet 20 MEQ PO ×2 (08:43→17:43)
[2022-11-17 10:00] VITALS: PULSE 107; RESP 18; O2SAT 97
[2022-11-17] MEDS: Menthol/Lanolin/Calamine/Znox 113 GM Tube 1 APPLIC TOPICAL ×2 (10:03→19:46)
[2022-11-17 13:18] VITALS: BP 121/89; PULSE 114; RESP 16; TEMP 36.9; O2SAT 98
[2022-11-17 14:54] VITALS: PULSE 107
--- NOTE | 2022-11-17 15:39 | PCM.PN.DRR ---
TCU RX Drug Regimen Review Subjective: TCU Admission. 56 YOF hospitalized for colitis, resolved, then encephalopathy, anemia. Admitted to TCU with debility for strengthening and rehabilitation. Objective: Allergies Penicillins Allergy (Verified 10/26/19 17:10) Hives Current Medications Generic Name Dose Route Start Last Admin Trade Name Freq PRN Reason Stop Dose Admin Acetaminophen 1,000 mg 11/12/22 08:07 11/17/22 07:04 Acetaminophen 500 Mg Tablet PO 1,000 mg Q6H PRN PRN Administration Pain Score 1-5 Calamine/Phenol 1 applic 11/12/22 10:00 11/17/22 10:03 Menthol/Lanolin/Calamine/Znox 113 Gm Tube TOPICAL 1 applic 1000,2200 PADMINI Administration Protocol Fluconazole 200 mg 11/12/22 06:00 11/17/22 07:00 Fluconazole 100 Mg Tablet PO 11/21/22 06:01 200 mg DAILY PADMINI Administration Lactulose 30 gm 11/11/22 18:00 11/17/22 06:59 Lactulose 20 Gm/30 Ml Udc PO 11/21/22 18:01 30 gm BID PADMINI Administration Nutritional Formula (Lactose Free) 120 ml 11/12/22 07:45 11/17/22 11:54 Ensure Plus High Protein 120 Ml Liquid PO Not Given TIDCM PADMINI Pantoprazole Sodium 40 mg 11/11/22 18:00 11/17/22 07:00 Pantoprazole Sodium 40 Mg Tablet PO 40 mg BID PADMINI Administration Paroxetine HCl 40 mg 11/12/22 06:00 11/17/22 07:00 Paroxetine 20 Mg Tablet PO 40 mg DAILY PADMINI Administration Potassium Chloride 20 meq 11/14/22 17:00 11/17/22 08:43 Potassium Chloride Oral Tablet 20 Meq PO 20 meq BIDCM PADMINI Administration Rifaximin 550 mg 11/11/22 18:00 11/17/22 07:01 Rifaximin 550 Mg Tablet PO 550 mg BID PADMINI Administration Sodium Bicarbonate 1,300 mg 11/11/22 22:00 11/17/22 13:24 Sodium Bicarbonate 650 Mg Tablet PO 1,300 mg TID PADMINI Administration Tramadol HCl 50 mg 11/12/22 08:06 11/17/22 13:26 Tramadol 50 Mg Tablet PO 50 mg Q6H PRN PRN Administration Pain Score 6-10 Tuberculin PPD 0.1 ml 11/19/22 10:00 Tuberculin,Purif.Prot.Deriv. 50 Tu/Ml Vial ID 11/19/22 10:01 X1 ONE Problem List (Last Reviewed 11/11/22 @ 20:[address] Jose Lopez MD) GERD (gastroesophageal reflux disease) (Acute) Anxiety (Acute) Wernicke encephalopathy (Acute) Hepatic encephalopathy (Acute) EMERY (nonalcoholic steatohepatitis) (Acute) Colitis (Acute) Debility (Acute) Vital Signs Temp Pulse Resp BP Pulse Ox O2 Del Method 98.5 F 107 H 16 121/89 H 98 Room Air 11/17/22 13:18 11/17/22 14:54 11/17/22 13:18 11/17/22 13:18 11/17/22 13:18 11/17/22 13:18 Oxygen Delivery Method Room Air Weight: 74.389 kg Body Mass Index (BMI) 26.8 Sodium 144 mmol/L (136-145) 11/16/22 08:08 Potassium 4.1 mmol/L (3.5-5.1) 11/16/22 08:08 Chloride 116 mmol/L (98-107) H 11/16/22 08:08 Carbon Dioxide 24.0 mmol/L (21.0-32.0) 11/16/22 08:08 Anion Gap 4 (5-15) L 11/16/22 08:08 BUN 4 mg/dL (7-18) L 11/16/22 08:08 Creatinine 1.08 mg/dL (0.55-1.02) H 11/16/22 08:08 Est GFR (MDRD) Af Amer 68 mL/min (>60) 11/16/22 08:08 Est GFR (MDRD) Non-Af 56 mL/min (>60) L 11/16/22 08:08 BUN/Creatinine Ratio 3.7 RATIO (10-20) L 11/16/22 08:08 Glucose 126 mg/dL (74-106) H 11/16/22 08:08 Assessment/Plan: 1. Pain: acetaminophen 1000mg PO Q6H PRN pain 1-5 and tramadol 50mg PO Q6H PRN 6-10. Resident has had 9 doses of acetaminophen and 16 doses of tramadol for pain 5-10 in a variety of locations. Please continue to monitor for increased pain, PRN usage, constipation, respiratory depression. 2. Fungal infection: fluconazole 200mg PO daily thru 11/21/22. Please continue to monitor for S/S of infection, renal function and nausea. 3. Hepatic encephalopathy: lactulose 30gm PO BID thru 11/21/22 and rifaximin 550mg PO BID. Please continue to monitor for S/S of confusion and diarrhea (last documented bowel movement 11/15/22). 4. GERD: pantoprazole 40mg PO BID. Please continue to monitor for S/S of GERD and diarrhea. 5. Metabolic acidosis: sodium bicarbonate 1300mg PO TID. Please continue to monitor for acidosis. 6. Hypokalemia (potassium 3.1mmol/L on 11/12): potassium chloride 20mEq PO BIDCM. Last potassium 4.1mmol/L. Assessment/Plan for indications treated with psychotropic medications: 1. Depression: paroxetine 40mg PO daily. Please see physician note regarding GDR. Please continue to monitor for suicidal ideation (black box warning) and GI side effects. Medical chart and medication regimen reviewed. The following medication irregularities or issues were identified: None Date of Note:: 11/17/22
--- NOTE | 2022-11-17 16:30 | CASEMGMT ---
Social Work Spoke with pt about request to DC home. IDT agreeable to DC 11/19. Pt requesting outpatient therapy at [facility]. Faxed referral for PT. Pt needs FWW. Sent referral to [facility] [place] [facility] via [facility]. to transport. Pt declined holding POC mtg tomorrow. BIMS () and PHQ-9 (02/08) completed for MDS assessment. Plan: DC home with 11/19, [facility] PT, FWW Nathalie Romero, PATIENT ADMITTING CLERK PROPULSION ENGINEER
--- NOTE | 2022-11-17 16:45 | DS.PCM_ITS ---
Providers Date of Admission: 11/11/22 Primary Care Physician: Dr. Roscoe Whelan DO Reason For Visit: ALTERED MENTAL STATUS/UTI Diagnosis Discharge Diagnosis (1) Debility: Status: Acute Code(s): R53.81 - Other malaise (2) Colitis: Status: Acute Code(s): K52.9 - Noninfective gastroenteritis and colitis, unspecified (3) EMERY (nonalcoholic steatohepatitis): Status: Acute Code(s): K75.81 - Nonalcoholic steatohepatitis (EMERY) (4) Hepatic encephalopathy: Status: Acute Code(s): K76.82 - Hepatic encephalopathy (5) Wernicke encephalopathy: Status: Acute Code(s): E51.2 - Wernicke's encephalopathy (6) Anxiety: Status: Acute Code(s): F41.9 - Anxiety disorder, unspecified (7) GERD (gastroesophageal reflux disease): Status: Acute Code(s): K21.9 - Gastro-esophageal reflux disease without esophagitis Plan 56 year old female with below past medical history hospitalized for colitis, resolved, then encephalopathy, anemia, admitted to TCU with debility, here for rehabilitation, strengthening, prior to discharge home with . * Debility - PT/OT. * Dysphagia - ST. * Pain - Tylenol 1000mg q6h prn pain (1-10). * Bowel - Hold, on Lactulose. * Adult immunization - Administer pneumonia vaccine, covid19 vaccine, flu vacci ne as appropriate. * DVT prophylaxis - Hold anemia. * Nutrition - Ensure Plus 120ml po tidcm. * Fungal infection - Fluconazole 200mg daily thru 11/21/2022. * Hepatic encephalopathy - Lactulose 30gm bid, Xifaxan 550mg bid. * Skin irritation - Calmoseptine topical bid. * GERD - Pantoprazole 40mg bid. * Depression - Paxil 40mg daily, stable chronic termite control technician use, GDR not recommended. * Metabolic acidosis - Sodium Bicarb 1300mg tid. Medications at Discharge Home Medications paroxetine HCl 40 mg tablet 40 mg PO DAILY Mood 11/05/22 acetaminophen 500 mg tablet 1,000 mg PO Q6H PRN PRN Pain Score 1-5 #0 tabs 11/17/22 lactulose 20 gram/30 mL oral solution 30 g (45 mL) PO BID 30 days #2,700 mL 11/17/22 pantoprazole 40 mg tablet,delayed release 40 mg PO BID 30 days #60 tabs 11/17/22 potassium chloride 20 mEq tablet,extended release(part/cryst) (Klor-Con M) 20 meq PO BIDCM 30 days #60 tabs 11/17/22 rifaximin 550 mg tablet (Xifaxan) 550 mg PO BID 30 days #60 tabs 11/17/22 sodium bicarbonate 650 mg tablet 1,300 mg PO TID 30 days #180 tabs 11/17/22 tramadol 50 mg tablet 50 mg PO Q6H PRN PRN Pain Score 6-10 7 days #28 tabs 11/17/22 Hospital Course Operations None Procedures None Summary of Care Provided Minutes Spent on Discharge: 35 Hospital Course: 56 year old female with below past medical history hospitalized for colitis, resolved, then encephalopathy, anemia, admitted to TCU with debility, here for rehabilitation, strengthening, prior to discharge home with . Discharge home with 11/19/2021, [facility], Front wheeled walker. Physical Exam Const alert General Appearance: cooperative HEENT normocephalic Eyes PERRL and EOMs intact bilaterally Neck supple, no JVD and no carotid bruits Resp normal respiratory effort, normal air movement and clear to auscultation bilaterally Cardio regular rate and regular rhythm GI normal to inspection, nondistended, normoactive bowel sounds, non-tender and non-distended Extremity normal capillary refill General Extremity: Negative for edema Skin no rashes or lesions noted General Skin Exam: no breakdown Psych affect normal Appearance: appropriate Weight / BMI Weight Weight: 74.389 kg Body Mass Index (BMI) 26.8 ABG / Lab / Microbiology Data Result Diagrams: 11/16/22 08:08 11/16/22 08:08 Microbiology: Microbiology 11/15/22 06:28 Nasal Secretion SARS-CoV-2 Antigen (Rapid) - Final 11/13/22 05:03 Nasal Secretion SARS-CoV-2 Antigen (Rapid) - Final 11/11/22 18:50 Nasal Secretion SARS-CoV-2 Antigen (Rapid) - Final D/C Instructions Discharge Diet: No restrictions Discharge Activity: Return to Normal Activity, May Shower and Use Walker May resume sexual activity in: No Restrictions Weight Bearing Status: Weight bearing as tolerated Call your doctor if you observe: Fever of 101 or Higher, Inability to urinate, Inability to have a bowel movement, Shortness of breath, Dizziness, Fainting spells, Swelling in the ankles, Chest pain and Uncontrolled pain Additional Instructions: Discharge home with 11/19/2021, [facility], Front wheeled walker. Meaningful Use Info Meaningful Use Diagnoses (Choose all that apply): None applicable Discharge Plan Admission Admit Date/Time: 11/11/22 17:10 Primary Reason for Your Visit: Debility. Attending Provider: Jose Lopez Chi Primary Care Provider: Roscoe Whelan Instructions Additional Instructions / Restrictions: Discharge home with 11/19/2021, [facility], Front wheeled walker. Discharge Orders/Prescriptions Prescriptions: New tramadol 50 mg Tablet 50 mg PO Q6H PRN PRN (Reason: Pain Score 6-10) 7 Days Qty: 28 0RF acetaminophen 500 mg Tablet 1,000 mg PO Q6H PRN PRN (Reason: Pain Score 1-5) Qty: 0 0RF potassium chloride [Klor-Con M20] 20 mEq Tablet,Er Particles/Crystals 20 meq PO BIDCM 30 Days Qty: 60 0RF sodium bicarbonate 650 mg Tablet 1,300 mg PO TID 30 Days Qty: 180 0RF pantoprazole 40 mg Tablet,Delayed Release (Dr/Ec) 40 mg PO BID 30 Days Qty: 60 0RF Xifaxan 550 mg Tablet 550 mg PO BID 30 Days Qty: 60 0RF lactulose 20 gram/30 mL Solution 30 g PO BID 30 Days Qty: 2700 0RF Continued paroxetine HCl 40 mg Tablet 40 mg PO DAILY Discontinued metformin 500 mg Tablet 1,000 mg PO DAILY@1700 lactulose 10 gram/15 mL Syrup 30 g PO TID thiamine HCl (vitamin B1) 100 mg Tablet 100 mg PO DAILY sodium bicarbonate 650 mg Tablet 1,300 mg PO TID propranolol 120 mg Capsule,Extended Release 24 Hr 120 mg PO DAILY rifaximin 550 mg Tablet 550 mg PO TID fluconazole 200 mg Tablet 200 mg PO DAILY folic acid 1 mg Tablet 1 mg PO DAILY pantoprazole 40 mg Tablet,Delayed Release (Dr/Ec) 40 mg PO BID Referrals / Follow Up: Roscoe Whelan, [Primary Care Provider] - Disposition Disposition (needs filled in before D/C Order can be placed): Home, Self Care
[2022-11-18] MEDS: Sodium Bicarbonate 650 MG Tablet 1300 MG PO ×3 (04:52→22:02)
[2022-11-18] MEDS: rifAXIMin 550 MG Tablet PO ×2 (04:52→17:30)
[2022-11-18] MEDS: Fluconazole 100 MG Tablet 200 MG PO (04:53)
[2022-11-18] MEDS: Paroxetine 20 MG Tablet 40 MG PO (04:53)
[2022-11-18] MEDS: Lactulose 20 GM/30 ML UDC 30 GM PO ×2 (04:53→17:28)
[2022-11-18] MEDS: Pantoprazole Sodium 40 MG Tablet PO ×2 (04:54→17:30)
[2022-11-18] MEDS: Acetaminophen 500 MG Tablet 1000 MG PO (04:57)
[2022-11-18] MEDS: traMADol 50 MG Tablet PO ×3 (04:58→19:39)
[2022-11-18] MEDS: Potassium Chloride Oral Tablet 20 MEQ PO ×2 (07:44→17:30)
--- NOTE | 2022-11-18 08:51 | CASEMGMT ---
Social Work Received call from confirming DC date and plans. would still like to have POC mtg today to get final updates on level of care. Nathalie Romero, DIVIDEND CLERK KITCHEN DESIGNER
--- NOTE | 2022-11-18 09:14 | NURSING ---
Enterprise Solutions Architect Note; MDS Complete
[2022-11-18] MEDS: Ensure Plus High Protein 120 ML LIQUID PO (11:43)
[2022-11-18 12:41] VITALS: PULSE 105; RESP 18; O2SAT 94
--- NOTE | 2022-11-18 13:52 | CASEMGMT ---
Addendum entered by Nathalie Romero 11/18/22 15:19: and pt spoke and prefer to have outpatient therapy closer to home in [place]. Provided options of [facility], [facility] in [place] or [facility]. Both prefer [facility]. SW contacted therapy department and faxed referral for PT. Canceled referral and appt with [facility]. Addendum entered by Nathalie Romero 11/18/22 13:57: Error: DC 11/19 Original Note: Social Work IDT met with patient and for care plan meeting. Discussed patient's progress in PT/OT/SN. Pt is mod I and improved greatly. Educated to MMO CM approved through DC 11/20. Educated to [facility] PT appt schedule. FWW will be delivered to pt's room prior to DC. to transport. KATHLEEN Romero
[2022-11-18 14:18] VITALS: BP 138/93; PULSE 111; RESP 16; TEMP 36.4; O2SAT 96
--- NOTE | 2022-11-18 16:08 | CHAPLAIN ---
Type of Pastoral Visit ___ Initial Visit _x__ Follow-up Visit ___ On-call Visit ___ General Patient Visit ___ Spiritual Assessment ___ Family Conference ___ Bereavement ___ Rapid Response ___ Code Blue ___ Other (describe below) Pastoral Care Referral From _x__ Patient ___ Family ___ Nurse ___ Physician ___ Weld Technician ___ Gericare Aide ___ Other (describe below) Sacrament/Intervention _x__ Active listening ___ Anointing ___ Confucianist ___ Bereavement ___ Communion ___ Marilyn exploration ___ ___ Life review ___ Prayer ___ Reconciliation ___ Sacrament of Sick ___ Supportive presence ___ Wedding ___ Other (describe below) Pastoral Comments patient reports feeling much improved and thankful for the plan to go home on Wednesday; pt thanks the hearing health technician for visits and support; no other needs presently
[2022-11-18] MEDS: Menthol/Lanolin/Calamine/Znox 113 GM Tube 1 APPLIC TOPICAL (22:03)
[2022-11-19 05:52] LABS: Absolute Lymphocyte Count 2.27 X10^3/uL (0.83-4.51); Absolute Neutrophil Count 4.4 X10^3/uL (2.0-7.7); Basophil# 0.04 X10^3/uL; Basophil% 0.5 % (0-1); Eosinophil# 0.28 X10^3/uL; Eosinophils% 3.7 % (0-5); Hematocrit 28.5 % (37-47); Lymphocyte # 2.27 X10^3/ul (0.83-4.51); Lymphocyte % 29.9 % (19-41); Mean Corp Hgb Conc 31.6 g/dL (32-36); Mean Corpuscular Hgb 32.4 pg (27.0-32.0); Mean Corpuscular Volume 102.5 fL (81-99); Mean Platelet Vol. 11.9 fl (6.2-12.0); Monocyte# 0.55 X10^3/uL; Monocyte% 7.2 % (0-10); NRBC Flagged by Analyzer 0 % (0-5); Neutrophil # 4.39 X10^3/uL (2.7-7.7); Neutrophil % 57.9 % (47-70); Platelet Count 156 K/mm3 (150-450); RBC Distribution Width CV 14.5 % (11.6-14.6); Red Blood Count 2.78 M/mm3 (4.2-5.4); White Blood Count 7.6 K/mm3 (4.4-11.0)
[2022-11-19 06:27] LABS: Anion Gap 6 (5-15); BUN 5 mg/dL (7-18); Chloride 114 mmol/L (98-107); Creatinine, Serum 0.84 mg/dL (0.55-1.02); EST Glomerular Filtration Rate 75 mL/min (>60); Est Glom Filt Rate - Afr Amer 91 mL/min (>60); Estimated Creatinine Clearance 70.84 ml/min; Glucose 70 mg/dL (74-106); Potassium 4.2 mmol/L (3.5-5.1); Sodium Level 144 mmol/L (136-145)
[2022-11-19] MEDS: Lactulose 20 GM/30 ML UDC 30 GM PO (06:43)
[2022-11-19] MEDS: rifAXIMin 550 MG Tablet PO (06:45)
[2022-11-19] MEDS: Sodium Bicarbonate 650 MG Tablet 1300 MG PO (06:46)
[2022-11-19] MEDS: Paroxetine 20 MG Tablet 40 MG PO (06:47)
[2022-11-19] MEDS: Pantoprazole Sodium 40 MG Tablet PO (06:47)
[2022-11-19] MEDS: Fluconazole 100 MG Tablet 200 MG PO (06:48)
[2022-11-19] MEDS: traMADol 50 MG Tablet PO (06:53)
[2022-11-19] MEDS: Ensure Plus High Protein 120 ML LIQUID PO (08:08)
[2022-11-19] MEDS: Potassium Chloride Oral Tablet 20 MEQ PO (08:08)
[2022-11-19 10:00] VITALS: PULSE 119; RESP 18; O2SAT 96
--- NOTE | 2022-11-24 09:39 | MDS.RN ---
Information for the mds was obtained from review of the clinical record, interview of resident, staff, and direct observation of residents care.
== END 2022-11-19 10:00 | disposition home or self-care (01) | DRG 641 ==
PROVIDERS: Admitting Provider Family Medicine Geriatric Medicine; PCP Family Medicine; Visit Provider Family Medicine Geriatric Medicine
DX: E51.2 Wernicke's encephalopathy (principal); E87.20 Acidosis, unspecified; K76.82 Hepatic encephalopathy; K75.81 Nonalcoholic steatohepatitis (NASH); K21.9 Gastro-esophageal reflux disease without esophagitis; F41.9 Anxiety disorder, unspecified; K52.9 Noninfective gastroenteritis and colitis, unspecified; Z79.899 Other long term (current) drug therapy; F32.A Depression, unspecified
CPT/HCPCS: 36415; 73502; 80048; 85014; 85018; 85025; 87811; 92507; 92523; 92526; 92610; 97110; 97116; 97162; 97166; 97530; 97535